=== PATIENT | female | born 1940 | race Caucasian/White ===

== ENCOUNTER → 2022-02-14 14:29 | Outpatient (BNVA) | payer MEDICARE, BC, SELFPAY | PROVIDERS: PCP Internal Medicine; Visit Provider Internal Medicine Pulmonary Disease | DX: J44.9 Chronic obstructive pulmonary disease, unspecified (principal); R06.02 Shortness of breath | CPT/HCPCS: 82785; 85025; 86003 ==

== ENCOUNTER 2022-04-24 12:42 | Outpatient (CLI) | payer MEDICARE, BC, SELFPAY ==
--- NOTE | 2022-04-24 14:10 | PFTS_ITS ---
Date of Study:04/24/22 Date of Dictation: 04/28/2022 MECHANICS: Postbronchodilator forced vital capacity (FVC) is reduced. Postbronchodilator forced expiratory volume in one second (FEV1) is moderately reduced. FEV1/FVC is reduced. There is no significant postbronchodilator response FLOW VOLUME LOOP: Sloping of expiratory limb suggestive of airway obstruction . LUNG VOLUMES: Total lung capacity (TLC) is normal. Residual volume (RV) is increased suggestive of air trapping. DIFFUSING CAPACITY FOR CARBON MONOXIDE: Moderately reduced . INTERPRETATION: The spirometry showed moderate obstructive ventilatory defect. There is no significant postbronchodilator response. Lung volumes suggestive of moderate air trapping. There is moderate gas transfer defect. Clinical correlation recommended. [facility]
== END 2022-04-24 12:43 | disposition home or self-care (01) ==
LOC: RT 12:45
PROVIDERS: PCP Internal Medicine; Visit Provider Internal Medicine Pulmonary Disease
DX: J44.9 Chronic obstructive pulmonary disease, unspecified (principal); F17.210 Nicotine dependence, cigarettes, uncomplicated
CPT/HCPCS: 94060; 94618; 94726; 94729; J7614

== ENCOUNTER 2022-08-15 06:00 | Outpatient (RCR) | payer MEDICARE, BC, SELFPAY | END 2022-09-12 23:59 | disposition home or self-care (01) | LOC: TPT 06:00 | PROVIDERS: PCP Internal Medicine; Visit Provider Internal Medicine Pulmonary Disease | DX: R53.1 Weakness (principal); J44.9 Chronic obstructive pulmonary disease, unspecified | CPT/HCPCS: 97110; 97163 ==

== ENCOUNTER 2022-09-13 06:00 | Outpatient (RCR) | payer MEDICARE, BC, SELFPAY | END 2022-10-13 23:59 | disposition home or self-care (01) | LOC: TPT 06:00 | PROVIDERS: PCP Internal Medicine; Visit Provider Internal Medicine Pulmonary Disease | DX: R53.1 Weakness (principal); J44.9 Chronic obstructive pulmonary disease, unspecified | CPT/HCPCS: 97110 ==

== ENCOUNTER 2022-10-14 06:00 | Outpatient (RCR) | payer MEDICARE, BC, SELFPAY | END 2022-11-13 23:59 | disposition home or self-care (01) | LOC: TPT 06:00 | PROVIDERS: PCP Internal Medicine; Visit Provider Internal Medicine Pulmonary Disease | DX: R53.1 Weakness (principal); J44.9 Chronic obstructive pulmonary disease, unspecified | CPT/HCPCS: 97110 ==

== ENCOUNTER 2022-11-14 06:00 | Outpatient (RCR) | payer MEDICARE, BC, SELFPAY | END 2022-12-11 23:59 | disposition home or self-care (01) | LOC: TPT 06:00 | PROVIDERS: PCP Internal Medicine; Visit Provider Internal Medicine Pulmonary Disease | DX: J44.9 Chronic obstructive pulmonary disease, unspecified (principal); R53.1 Weakness | CPT/HCPCS: 97110 ==

== ENCOUNTER 2022-12-12 06:00 | Outpatient (RCR) | payer MEDICARE, BC, SELFPAY | END 2023-01-11 23:59 | disposition home or self-care (01) | LOC: TPT 06:00 | PROVIDERS: PCP Internal Medicine; Visit Provider Internal Medicine Pulmonary Disease | DX: J44.9 Chronic obstructive pulmonary disease, unspecified (principal); R53.1 Weakness | CPT/HCPCS: 97110 ==

== ENCOUNTER → 2023-08-15 08:48 | Outpatient (BNVA) | payer MEDICARE, BC, SELFPAY | PROVIDERS: PCP Internal Medicine; Visit Provider Podiatrist Foot & Ankle Surgery | DX: R09.89 Other specified symptoms and signs involving the circulatory and respiratory systems (principal); L60.3 Nail dystrophy; L60.8 Other nail disorders | CPT/HCPCS: 11730; 99203 ==

== ENCOUNTER 2023-08-29 09:13 | Outpatient (CLI) | payer MEDICARE, BC, SELFPAY ==
--- NOTE | 2023-08-29 09:19 | USCV_ITS ---
Nehal Adam Age: 83 Gender: F : 1940 Exam Date: 08/29/2023 10:21 Ordering Phys: Chris Elizabeth DPM Technologist: Marc Mcgrath [place] [facility] [place]: Pulselessness RIGHT LEFT Brachial 115.00 mmHg Brachial 129.00 mmHg Pressure (mmHg) Waveform Pressure (mmHg) Waveform 108.00 AMUSEMENT [employer] 80.00 110.00 DPA 105.00 0.85 Ankle/Brachial Index 0.81 97.00 Pre-Exercise Toe Pressure 54.00 0.75 Pre-Exercise Toe/Brachial Index 0.42 FINDINGS Resting LÁZARO of 0.85 on the right side and 0.81 on the left side Resting L[place]ZAR[place] of 0.75 on the right and 0.42 on the left The PPG waveform showed normal amplitude waveforms with the loss of dicrotic notch on the right side Low amplitude and delayed to be making waveforms on the left side CONCLUSIONS 1. Abnormal resting LÁZARO with a normal resting TBI on the right side, suggesting mild peripheral artery disease 2. 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
== END 2023-08-29 09:14 | disposition home or self-care (01) ==
LOC: RAD 09:13
PROVIDERS: PCP Internal Medicine; Visit Provider Podiatrist Foot & Ankle Surgery
DX: L60.3 Nail dystrophy (principal); R09.89 Other specified symptoms and signs involving the circulatory and respiratory systems; L60.8 Other nail disorders
CPT/HCPCS: 93923; 99213

== ENCOUNTER → 2023-09-23 10:33 | Outpatient (BNVA) | payer MEDICARE, BC, SELFPAY | PROVIDERS: PCP Internal Medicine; Visit Provider Podiatrist Foot & Ankle Surgery | DX: S92.502A Displaced unspecified fracture of left lesser toe(s), initial encounter for closed fracture; L60.8 Other nail disorders; L60.3 Nail dystrophy; R09.89 Other specified symptoms and signs involving the circulatory and respiratory systems; W22.03XA Walked into furniture, initial encounter | CPT/HCPCS: 73630; 99213 ==

== ENCOUNTER → 2023-09-26 13:03 | Outpatient (BNVA) | payer MEDICARE, BC, SELFPAY | PROVIDERS: PCP Internal Medicine; Visit Provider Dermatology | DX: L57.0 Actinic keratosis (principal); L82.0 Inflamed seborrheic keratosis; L82.1 Other seborrheic keratosis; L57.8 Other skin changes due to chronic exposure to nonionizing radiation; L81.4 Other melanin hyperpigmentation; D22.39 Melanocytic nevi of other parts of face; D22.4 Melanocytic nevi of scalp and neck; Z85.828 Personal history of other malignant neoplasm of skin | CPT/HCPCS: 17000; 17110; 99203 ==